=== PATIENT | male | born 1940 | race African-American/Black ===

== ENCOUNTER 2018-08-08 11:05 | Inpatient (IN) ==
[2018-08-08] MEDS ORDERED: methylPREDNISolone SOD SUC 125 MG/2 ML VIAL IV STA (11:21)
[2018-08-08] MEDS ORDERED: SODIUM CHLORIDE 0.9% 1,000 ML IV STA (11:21)
[2018-08-08] MEDS ORDERED: ALBUTEROL/IPRATROPIUM 3 ML NEB RESP TX STA (11:21)
[2018-08-08 11:27] LABS: Basophils % 0.4 % (0.0-0.8); Eosinophils % 0.2 % (0.00-10.9); Hematocrit 42.4 VOL% (42.0-52.0); Hemoglobin 13.4 GM/DL (14.0-18.0); Immature Granulocytes % 0.7 %; Immature Granulocytes Absolute 0.07 #; Lymphocytes # 0.9 10*3/uL (1.4-4.0); Lymphocytes % 8.7 % (21.2-54.2); Mean Corpuscular HGB Conc 31.6 GM/DL (32-36); Mean Corpuscular Volume 92.6 FL (87-102); Mean Platelet Volume 9.9 FL (9.6-12.0); Monocytes % 2.6 % (1.7-12.7); Neutrophils % 87.4 % (38.7-73.9); Platelet Count 185 T/CUMM (130-400); Red Blood Count 4.58 MC/CUMM (3.8-5.5); Red Cell Distribution Width 14.8 % (9.3-17.3); White Blood Count 10.3 T/CUMM (4-12)
[2018-08-08 11:37] LABS: PT Patient Result 10.7 SECS
[2018-08-08 11:39] LABS: ABG Base Excess -0.8 MMOL/L (-2.5-2.5); ABG HCO3 23.8 MMOL/L (20-26); ABG Oxygen Saturation 99.6 % (95-100); ABG PCO2 40.9 MM HG (35-48); ABG PH 7.381 (7.35-7.45); ABG TCO2 21.1 MMOL/L (23-27); Allen Test Positive
[2018-08-08 12:02] LABS: Bilirubin,Total 1.7 MG/DL (0.2-1.0); Calcium 9.6 MG/DL (8.5-10.1); Osmolality,Calculated 284.7 MOS/KG (273-304); Total Protein 8.1 G/DL (6.4-8.3)
[2018-08-08] MEDS ORDERED: MORPHINE 4 MG/1 ML VIAL ONE (12:32)
[2018-08-08] MEDS ORDERED: MORPHINE 4 MG/1 ML VIAL IV STA (12:54)
[2018-08-08] MEDS ORDERED: DEXTROSE 10% 250 ML BAG IV PRN (14:37)
[2018-08-08] MEDS ORDERED: diphenhydrAMINE CAP 25 MG CAPSULE PO PRN (14:37)
[2018-08-08] MEDS ORDERED: GLUCAGON 1 MG VIAL IM PRN (14:37)
[2018-08-08] MEDS ORDERED: ONDANSETRON 4 MG/2 ML VIAL IV PRN (14:37)
[2018-08-08] MEDS ORDERED: ACETAMINOPHEN 325 MG TABLET PO PRN (14:37)
[2018-08-08] MEDS: PANTOPRAZOLE 40 MG TABLET PO SCH (17:55)
[2018-08-08] MEDS: INSULIN REGULAR 100 UNIT/ML SUBCUT SCH ×2 (18:31→21:38)
[2018-08-08] MEDS: SODIUM CHLORIDE 0.9% 1,000 ML IV SCH (18:36)
[2018-08-08] MEDS ORDERED: MORPHINE 4 MG/1 ML VIAL IV PRN (19:47)
[2018-08-08] MEDS: MORPHINE 4 MG/1 ML VIAL IV PRN (20:06)
[2018-08-08] MEDS: TAMSULOSIN 0.4 MG CAPSULE PO SCH (20:08)
[2018-08-09] MEDS ORDERED: hydrALAZINE 25 MG TABLET PO PRN (00:22)
[2018-08-09] MEDS: hydrALAZINE 25 MG TABLET PO PRN ×2 (00:39→05:41)
[2018-08-09] MEDS: MORPHINE 4 MG/1 ML VIAL IV PRN ×2 (00:39→05:42)
[2018-08-09] MEDS: SODIUM CHLORIDE 0.9% 1,000 ML IV SCH ×2 (00:40→18:19)
[2018-08-09 04:53] LABS: Apearance,Urine CLEAR (Clear); Bilirubin,Urine Negative (Negative); Blood, Urine Negative (Negative); Glucose,Urine (UA) >=500 mg/dL (Negative); Ketones,Urine Negative (Negative); Mucus,Urine Occasional /LPF (Occasional); Nitrite,Urine Negative (Negative); Protein,Urine 100 MG/DL; RBC,Urine 1 /HPF (0-4); Urine Color Yellow (Yellow); Urine Specific Gravity 1.023 (1.001-1.035); Urine Urobilinogen < 2.0 EU/DL (0.2-1.0); WBC,Urine 1 /HPF (0-6)
[2018-08-09 05:22] LABS: Basophils % 0.1 % (0.0-0.8); Hematocrit 38.6 VOL% (42.0-52.0); Hemoglobin 12.2 GM/DL (14.0-18.0); Immature Granulocytes % 0.7 %; Immature Granulocytes Absolute 0.06 #; Lymphocytes # 0.6 10*3/uL (1.4-4.0); Lymphocytes % 6.7 % (21.2-54.2); Mean Corpuscular HGB Conc 31.6 GM/DL (32-36); Mean Corpuscular Volume 91.9 FL (87-102); Mean Platelet Volume 10.3 FL (9.6-12.0); Monocytes % 1.3 % (1.7-12.7); Neutrophils % 91.2 % (38.7-73.9); Platelet Count 165 T/CUMM (130-400); Red Cell Distribution Width 14.6 % (9.3-17.3); White Blood Count 8.7 T/CUMM (4-12)
[2018-08-09 06:21] LABS: Anisocytosis 1+; Band Neutrophils 1 % (0-10); Lymphocytes 7 % (20-55); Platelet Estimate Adequate; Segmented Neutrophils 92 % (50-85); Total Cells Counted 100
[2018-08-09] MEDS: INSULIN REGULAR 100 UNIT/ML SUBCUT SCH ×4 (09:52→21:08)
[2018-08-09] MEDS: DOCUSATE SODIUM 100 MG CAPSULE PO PRN (09:52)
[2018-08-09] MEDS: PANTOPRAZOLE 40 MG TABLET PO SCH (09:52)
[2018-08-09] MEDS: GLIMEPIRIDE 2 MG TABLET PO SCH (09:52)
[2018-08-09] MEDS: TAMSULOSIN 0.4 MG CAPSULE PO SCH (21:09)
[2018-08-09] MEDS: guaiFENesin/DM ER 600-30 MG TABLET PO PRN (21:09)
[2018-08-10] MEDS: hydrALAZINE 25 MG TABLET PO PRN ×3 (01:09→16:27)
[2018-08-10] MEDS: GLIMEPIRIDE 2 MG TABLET PO SCH (08:37)
[2018-08-10] MEDS: PANTOPRAZOLE 40 MG TABLET PO SCH (08:37)
[2018-08-10] MEDS ORDERED: MORPHINE 10 MG/1 ML VIAL IV ONE (09:08)
[2018-08-10] MEDS ORDERED: LIDOCAINE 1%/EPI INJ 20 ML VIAL MISC INJ ONE (09:09)
[2018-08-10] MEDS: INSULIN REGULAR 100 UNIT/ML SUBCUT SCH ×4 (11:35→21:44)
[2018-08-10] MEDS: TAMSULOSIN 0.4 MG CAPSULE PO SCH (21:43)
[2018-08-10] MEDS: traZODone 50 MG TABLET PO PRN (21:48)
[2018-08-11 05:01] LABS: Basophils % 0.8 % (0.0-0.8); Eosinophils # 0.2 10*3/uL (0.0-0.87); Eosinophils % 3.8 % (0.00-10.9); Hematocrit 38.9 VOL% (42.0-52.0); Hemoglobin 12.1 GM/DL (14.0-18.0); Immature Granulocytes % 0.6 %; Immature Granulocytes Absolute 0.03 #; Lymphocytes # 1.2 10*3/uL (1.4-4.0); Mean Corpuscular HGB Conc 31.1 GM/DL (32-36); Mean Corpuscular Volume 94.4 FL (87-102); Mean Platelet Volume 10.7 FL (9.6-12.0); Monocytes % 3.6 % (1.7-12.7); Neutrophils % 68.2 % (38.7-73.9); Platelet Count 125 T/CUMM (130-400); Red Blood Count 4.12 MC/CUMM (3.8-5.5); Red Cell Distribution Width 14.6 % (9.3-17.3); White Blood Count 5.3 T/CUMM (4-12)
[2018-08-11 05:32] LABS: Calcium 9.4 MG/DL (8.5-10.1); Osmolality,Calculated 282.3 MOS/KG (273-304)
[2018-08-11 07:07] LABS: Eosinophils 5 % (0-10); Hypochromasia 1+; Lymphocytes 21 % (20-55); Ovalocytes Slight; Platelet Estimate Normal; Segmented Neutrophils 68 % (50-85); Total Cells Counted 100
[2018-08-11] MEDS: hydrALAZINE 25 MG TABLET PO PRN (09:42)
[2018-08-11] MEDS: INSULIN REGULAR 100 UNIT/ML SUBCUT SCH ×5 (09:43→20:57)
[2018-08-11] MEDS: PANTOPRAZOLE 40 MG TABLET PO SCH (09:43)
[2018-08-11] MEDS: GLIMEPIRIDE 2 MG TABLET PO SCH (09:43)
[2018-08-11] MEDS: guaiFENesin/DM ER 600-30 MG TABLET PO PRN ×2 (11:40→20:56)
[2018-08-11] MEDS: TAMSULOSIN 0.4 MG CAPSULE PO SCH (20:56)
[2018-08-11] MEDS: traZODone 50 MG TABLET PO PRN (20:56)
[2018-08-12] MEDS: INSULIN REGULAR 100 UNIT/ML SUBCUT SCH ×4 (07:57→20:29)
[2018-08-12] MEDS: GLIMEPIRIDE 2 MG TABLET PO SCH (08:00)
[2018-08-12] MEDS: PANTOPRAZOLE 40 MG TABLET PO SCH (08:00)
[2018-08-12] MEDS: traZODone 50 MG TABLET PO PRN (20:32)
[2018-08-12] MEDS: DOCUSATE SODIUM 100 MG CAPSULE PO PRN (20:32)
[2018-08-12] MEDS: guaiFENesin/DM ER 600-30 MG TABLET PO PRN (20:32)
[2018-08-12] MEDS: TAMSULOSIN 0.4 MG CAPSULE PO SCH (20:32)
[2018-08-13 05:50] LABS: Osmolality,Calculated 278.7 MOS/KG (273-304)
[2018-08-13] MEDS: INSULIN REGULAR 100 UNIT/ML SUBCUT SCH ×4 (08:19→21:08)
[2018-08-13] MEDS: guaiFENesin/DM ER 600-30 MG TABLET PO PRN ×2 (08:42→21:05)
[2018-08-13] MEDS: PANTOPRAZOLE 40 MG TABLET PO SCH (08:43)
[2018-08-13] MEDS: GLIMEPIRIDE 2 MG TABLET PO SCH (08:43)
[2018-08-13] MEDS: LACTULOSE 20 GM/30 ML UDCUP PO PRN (08:43)
[2018-08-13] MEDS ORDERED: METOPROLOL TARTRATE 5 MG/5 ML VIAL IV ONE (11:57)
[2018-08-13] MEDS: CARVEDILOL 3.125 MG TABLET PO SCH ×2 (13:25→21:05)
[2018-08-13] MEDS: TAMSULOSIN 0.4 MG CAPSULE PO SCH (21:05)
[2018-08-14] MEDS: INSULIN REGULAR 100 UNIT/ML SUBCUT SCH ×4 (09:17→20:07)
[2018-08-14] MEDS: PANTOPRAZOLE 40 MG TABLET PO SCH (09:17)
[2018-08-14] MEDS: CARVEDILOL 3.125 MG TABLET PO SCH ×2 (09:17→20:07)
[2018-08-14] MEDS: GLIMEPIRIDE 2 MG TABLET PO SCH (09:17)
[2018-08-14] MEDS: TAMSULOSIN 0.4 MG CAPSULE PO SCH (20:07)
[2018-08-14] MEDS: guaiFENesin/DM ER 600-30 MG TABLET PO PRN (20:07)
[2018-08-14] MEDS: LACTULOSE 20 GM/30 ML UDCUP PO PRN (20:07)
[2018-08-15] MEDS: GLIMEPIRIDE 2 MG TABLET PO SCH (08:48)
[2018-08-15] MEDS: LACTULOSE 20 GM/30 ML UDCUP PO PRN (08:48)
[2018-08-15] MEDS: PANTOPRAZOLE 40 MG TABLET PO SCH (08:48)
[2018-08-15] MEDS: CARVEDILOL 3.125 MG TABLET PO SCH (08:48)
[2018-08-15] MEDS: INSULIN REGULAR 100 UNIT/ML SUBCUT SCH ×2 (08:52→12:36)
[2018-08-15 12:17] VITALS: BP 157/78
== END 2018-08-15 13:15 | disposition home or self-care (01) | DRG 200 ==
LOC: EDBD → EDUNIT# → N.ED 11:05 → N.EDINP 14:37 → SUATTDRO 14:37 → N.4E 16:40
PROVIDERS: ADMIT Internal Medicine; ATTEND Hospitalist

== ENCOUNTER 2022-02-26 13:12 | Observation (INO) ==
[2022-02-26 13:48] LABS: Basophils % 0.4 % (0.0-0.8); Eosinophils % 1.7 % (0.00-10.9); Hematocrit 38.4 VOL% (42.0-52.0); Hemoglobin 12.3 GM/DL (14.0-18.0); Immature Granulocytes % 2.6 %; Immature Granulocytes Absolute 0.06 #; Lymphocytes # 0.4 10*3/uL (1.4-4.0); Mean Corpuscular Volume 96.7 FL (87-102); Mean Platelet Volume 10.2 FL (9.6-12.0); Monocytes # 0.2 10*3/uL (0.11-0.8); Monocytes % 6.5 % (1.7-12.7); Neutrophils % 69.8 % (38.7-73.9); Platelet Count 131 T/CUMM (130-400); Red Blood Count 3.97 MC/CUMM (3.8-5.5); Red Cell Distribution Width 13.4 % (9.3-17.3); White Blood Count 2.3 T/CUMM (4-12)
[2022-02-26 14:05] LABS: Albumin 2.9 G/DL (3.4-5.0); Bilirubin,Total 0.4 MG/DL (0.20-1.00); Calcium 8.5 MG/DL (8.5-10.1); Total Protein 6.3 G/DL (6.4-8.2)
[2022-02-26 14:06] LABS: Potassium 5.1 MMOL/L (3.5-5.1)
[2022-02-26 14:15] LABS: Band Neutrophils 4 % (0-10); Eosinophils 3 % (0-10); Lymphocytes 12 % (20-55); Total Cells Counted 100
[2022-02-26 14:16] LABS: Platelet Estimate Decreased
[2022-02-26] MEDS ORDERED: SIMETHICONE CHEW 125 MG TABLET PO PRN (15:21)
[2022-02-26] MEDS ORDERED: LACTULOSE 20 GM/30 ML UDCUP PO PRN (15:21)
[2022-02-26] MEDS ORDERED: ONDANSETRON 4 MG/2 ML VIAL IV PRN (15:21)
[2022-02-26] MEDS ORDERED: CALCIUM CARBONATE CHEW 500 MG TABLET PO PRN (15:21)
[2022-02-26] MEDS ORDERED: ACETAMINOPHEN 325 MG TABLET PO PRN (15:21)
[2022-02-26] MEDS ORDERED: DOCUSATE SODIUM 100 MG CAPSULE PO PRN (15:21)
[2022-02-26] MEDS ORDERED: ALUMINUM/MAGNES/SIMETH MAX STR 30 ML UDCUP PO PRN (15:21)
[2022-02-26] MEDS ORDERED: ENOXAPARIN 40 MG/0.4 ML SYRINGE SUBCUT SCH (15:30)
[2022-02-26] MEDS: LACTATED RINGERS 1,000 ML IV SCH (15:45)
[2022-02-26] MEDS: INSULIN LISPRO 100 UNIT/ML SUBCUT SCH ×2 (17:39→22:24)
[2022-02-26] MEDS ORDERED: TAMSULOSIN 0.4 MG CAPSULE PO SCH (21:00)
[2022-02-26] MEDS ORDERED: LATANOPROST 0.005% OPH SOLN 2.5 ML BOTTLE BOTH EYES SCH (21:00)
[2022-02-26] MEDS: DORZOLAMIDE/TIMOLOL OPH SOLN 10 ML BOTTLE LEFT EYE SCH (22:26)
[2022-02-27] MEDS ORDERED: hydrALAZINE 20 MG/1 ML VIAL IV PRN (01:15)
[2022-02-27] MEDS: LACTATED RINGERS 1,000 ML IV SCH (05:29)
[2022-02-27 05:33] LABS: Basophils % 0.3 % (0.0-0.8); Hematocrit 34.9 VOL% (42.0-52.0); Immature Granulocytes % 1.2 %; Immature Granulocytes Absolute 0.07 #; Lymphocytes # 0.2 10*3/uL (1.4-4.0); Lymphocytes % 3.2 % (21.2-54.2); Mean Corpuscular HGB Conc 34.4 GM/DL (32-36); Mean Corpuscular Volume 91.8 FL (87-102); Mean Platelet Volume 11.1 FL (9.6-12.0); Monocytes # 0.2 10*3/uL (0.11-0.8); Monocytes % 3.4 % (1.7-12.7); Neutrophils % 91.9 % (38.7-73.9); Platelet Count 142 T/CUMM (130-400); Red Cell Distribution Width 13.2 % (9.3-17.3); White Blood Count 5.9 T/CUMM (4-12)
[2022-02-27 05:52] LABS: Risk Ratio 3.6; VLDL Cholesterol 23.2 MG/DL
[2022-02-27 06:01] LABS: Albumin 2.9 G/DL (3.4-5.0); Band Neutrophils 3 % (0-10); Bilirubin,Total 0.4 MG/DL (0.20-1.00); Calcium 9.1 MG/DL (8.5-10.1); Lymphocytes 3 % (20-55); Microcytosis Slight; Osmolality,Calculated 274.8 MOS/KG (273-304); Ovalocytes Slight; Potassium 4.1 MMOL/L (3.5-5.1); Thyroid Stimulating Hormone 0.322 uIU/ml (0.358-3.74); Total Cells Counted 100; Total Protein 6.7 G/DL (6.4-8.2)
[2022-02-27 06:02] LABS: Platelet Estimate Adequate
[2022-02-27 06:09] LABS: Amorphous Crystals,Urine Few /HPF (Few); Bacteria,Urine Occasional /HPF (Few); Mucus,Urine Occasional /LPF (Occasional); RBC,Urine 1 /HPF (0-4); Squamous Epithelial Cell,Urine Few /HPF (0-10)
[2022-02-27 06:16] LABS: Bilirubin,Urine Negative (Negative); Blood, Urine Negative (Negative); Glucose,Urine (UA) 250 mg/dL (Negative); Ketones,Urine Negative (Negative); Nitrite,Urine Negative (Negative); Protein,Urine 100 mg/dL (Negative); Urine Appearance Clear (Clear); Urine Color Yellow (Yellow); Urine Specific Gravity 1.015 (1.001-1.035)
[2022-02-27 07:43] LABS: Free T4 (Free Thyroxine) 1.23 NG/DL (0.76-1.46)
[2022-02-27] MEDS: DORZOLAMIDE/TIMOLOL OPH SOLN 10 ML BOTTLE LEFT EYE SCH (08:52)
[2022-02-27] MEDS: INSULIN LISPRO 100 UNIT/ML SUBCUT SCH ×2 (08:55→13:04)
[2022-02-27] MEDS ORDERED: PANTOPRAZOLE 40 MG TABLET PO SCH (09:00)
[2022-02-27] MEDS ORDERED: SERTRALINE 50 MG TABLET PO SCH (09:00)
[2022-02-27] MEDS ORDERED: ASPIRIN 325 MG TABLET PO SCH (09:00)
[2022-02-27 13:46] VITALS: BP 158/74
== END 2022-02-27 14:40 | disposition home or self-care (01) ==
LOC: EDUNIT# → EDBD → N.EDINP 13:12 → N.ED 13:12 → N.TELES 16:53
PROVIDERS: ADMIT Internal Medicine; ATTEND Internal Medicine